=== PATIENT | male | born 1980 | race African-American/Black ===

== ENCOUNTER 2016-09-13 15:07 | Emergency (ER) | payer SELFPAY ==
[~2016-09-13] VITALS: Ht 175.3 cm; Wt 82.0 kg
[~2016-09-13 15:07] MED LIST: EPSOM SAL1 OR; EX-LAX OR; LIBRIUM25 MG OR; NO HOME MEDS
[2016-09-13 16:31] LABS: HEMATOCRIT 40.2 % (39.0-50.0); IMMATURE GRANULOCYTES 0.4 % (0.0-1.0); MEAN CELL VOLUME 103.3 fL CALC (80.0-100.0); MEAN CORPUSCULAR HGB 33.4 pG CALC (26.0-32.0); MEAN CORPUSCULAR HGB CONC 32.3 g/L CALC (32.0-36.0); NEUT# 4.5 thou/uL (1.82-7.42); RED BLOOD COUNT 3.89 mill/uL (4.70-6.10)
[2016-09-13 16:37] LABS: ALBUMIN 5.8 g/dL (3.2-5.0); ALKALINE PHOSPHATASE 77 u/l (38-126); ANION GAP 39 (6-22 (CALC)); BILIRUBIN, TOTAL 1.2 mg/dL (0.0-1.4); BUN 8 mg/dL (9-20); BUN/CREATININE RATIO 9 (12-20 (CALC)); CARBON DIOXIDE 11 mmol/l (22-30); CHLORIDE 98 mmol/l (95-108); GFR > 60 ML/MIN (>=60 (CALC)); GFR FOR AFR.AMER. > 60 ML/MIN (>=60 (CALC)); GLUCOSE 135 mg/dL (75-110); POTASSIUM 4.3 mmol/l (3.5-5.1); SGOT/AST 146 u/l (17-59); SGPT/ALT 72 u/l (21-72); SODIUM 143 mmol/l (137-146); TOTAL PROTEIN 10.1 g/dL (6.3-8.2)
[2016-09-13 19:57] LABS: ETHYL ALCOHOL 0 mg/dl (0-30)
[2016-09-13 22:50] LABS: URINE BLOOD DIPSTICK LARGE (NEGATIVE); URINE CLARITY CLEAR; URINE COLOR YELLOW; URINE GLUCOSE - DIPSTICK NEGATIVE (NEGATIVE); URINE KETONE 40 mg/dL (NEGATIVE); URINE LEUK ESTERASE NEGATIVE (NEGATIVE); URINE NITRITE - DIPSTICK NEGATIVE (Negative); URINE PROTEIN - DIPSTICK >=300 mg/dL (NEG-TRACE); URINE SPECIFIC GRAVITY >=1.030
[2016-09-13 22:55] LABS: BARBITURATES NEGATIVE (NEGATIVE); COCAINE NEGATIVE (NEGATIVE); METHADONE NEGATIVE (NEGATIVE); OXCYCODONE NEGATIVE (NEGATIVE); TETRAHYDROCANNABIONOL NEGATIVE (NEGATIVE); TRICYLIC ANTIDEPRESSANTS NEGATIVE (NEGATIVE)
[2016-09-13 22:57] LABS: URINE BILIRUBIN - DIPSTICK NEGATIVE (NEGATIVE)
[2016-09-13 23:05] LABS: URINE WBC 0-2 WBC/hpf (0-5); URINE YEAST FEW hpf
[2016-09-14 02:25] LABS: ALBUMIN 4.4 g/dL (3.2-5.0); ALKALINE PHOSPHATASE 63 u/l (38-126); ANION GAP 18 (6-22 (CALC)); BILIRUBIN, TOTAL 1.1 mg/dL (0.0-1.4); BUN 9 mg/dL (9-20); BUN/CREATININE RATIO 12 (12-20 (CALC)); CALCIUM 8.8 mg/dL (8.4-10.2); CARBON DIOXIDE 22 mmol/l (22-30); CHLORIDE 100 mmol/l (95-108); CREATININE 0.7 mg/dL (0.7-1.3); GFR > 60 ML/MIN (>=60 (CALC)); GFR FOR AFR.AMER. > 60 ML/MIN (>=60 (CALC)); GLUCOSE 71 mg/dL (75-110); POTASSIUM 4.3 mmol/l (3.5-5.1); SGOT/AST 98 u/l (17-59); SGPT/ALT 62 u/l (21-72); SODIUM 136 mmol/l (137-146); TOTAL PROTEIN 7.7 g/dL (6.3-8.2)
[2016-09-14 03:30] VITALS: BP 140/78
== END 2016-09-14 03:30 | disposition home or self-care (01) | DRG 101 ==
LOC: ED 15:07
PROVIDERS: Emergency Medicine
DX: G40.509 Epileptic seizures related to external causes, not intractable, without status epilepticus (principal); F17.200 Nicotine dependence, unspecified, uncomplicated
CPT/HCPCS: J2060

== ENCOUNTER 2017-06-15 13:31 | Emergency (ER) | payer SELFPAY ==
[~2017-06-15] VITALS: Ht 175.3 cm; Wt 60.0 kg
[2017-06-15] MEDS ORDERED: GENTAMICIN15 ML/BTL OD (15:34)
[2017-06-15 16:12] VITALS: BP 122/61
== END 2017-06-15 16:12 | disposition home or self-care (01) | DRG 115 ==
LOC: ED 13:31
PROC: 08C8XZZ Extirpation of Matter from Right Cornea, External Approach (ICD-10-PCS; principal; 2017-06-15)
DX: T15.01XA Foreign body in cornea, right eye, initial encounter (principal); X58.XXXA Exposure to other specified factors, initial encounter; Y93.89 Activity, other specified; Y92.414 Local residential or business street as the place of occurrence of the external cause

== ENCOUNTER 2018-02-07 20:53 | Emergency (ER) | payer SELFPAY ==
[~2018-02-07] VITALS: Ht 175.3 cm; Wt 70.9 kg
[~2018-02-07 20:53] MED LIST changes: +GENTAMICIN15 ML/BTL OD
[2018-02-07 21:30] VITALS: BP 137/90
[2018-02-07 21:33] LABS: HEMATOCRIT 38.2 % (39.0-50.0); HEMOGLOBIN 13.5 g/dl (14.0-18.0); IMMATURE GRANULOCYTES 0.2 % (0.0-5.0); MEAN CORPUSCULAR HGB 34.3 pG CALC (26.0-32.0); MEAN CORPUSCULAR HGB CONC 35.3 g/L CALC (32.0-36.0); NEUT# 2.28 thou/uL (1.82-7.42); RED BLOOD COUNT 3.94 mill/uL (4.70-6.10); RED CELL DISTRI WIDTH 13.5 % (11.5-15.5)
[2018-02-07 21:46] LABS: BILIRUBIN, TOTAL 0.4 mg/dL (0.0-1.4); BUN 5 mg/dL (9-20); BUN/CREATININE RATIO 8 (12-20 (CALC)); CHLORIDE 103 mmol/l (95-108); CREATININE 0.7 mg/dL (0.7-1.3); GFR > 60 ML/MIN (>=60 (CALC)); GFR FOR AFR.AMER. > 60 ML/MIN (>=60 (CALC)); POTASSIUM 4.1 mmol/l (3.5-5.1); SGOT/AST 116 u/l (17-59); SGPT/ALT 66 u/l (21-72); TOTAL PROTEIN 9.2 g/dL (6.3-8.2)
[2018-02-07 21:54] LABS: ALKALINE PHOSPHATASE 113 u/l (38-126); ANION GAP 18 (6-22 (CALC)); CARBON DIOXIDE 30 mmol/l (22-30); SODIUM 147 mmol/l (137-146)
[2018-02-07 21:55] LABS: ETHYL ALCOHOL 431 mg/dl (0-30)
[2018-02-07 21:57] LABS: MYOGLOBIN 26 ng/mL (0 - 121)
== END 2018-02-07 21:51 | disposition left against medical advice (07) | DRG 313 ==
LOC: ED 20:53
PROVIDERS: Emergency Medicine
DX: R07.89 Other chest pain (principal); F10.20 Alcohol dependence, uncomplicated; Y90.8 Blood alcohol level of 240 mg/100 ml or more; F17.210 Nicotine dependence, cigarettes, uncomplicated; Z91.19 Patient's noncompliance with other medical treatment and regimen

== ENCOUNTER 2021-10-27 15:29 | Inpatient (IN) | payer SELFPAY ==
[2021-10-27] VITALS (17 sets, daily range): BP systolic 117–169; BP diastolic 76–112
[~2021-10-27] VITALS: Ht 170.2 cm; Wt 56.6 kg
[2021-10-27 16:25] LABS: HEMATOCRIT 41.6 % (39.0-50.0); HEMOGLOBIN 14.5 g/dl (14.0-18.0); IMMATURE GRANULOCYTES 0.4 % (0.0-5.0); MEAN CELL VOLUME 95.6 fL CALC (80.0-100.0); MEAN CORPUSCULAR HGB 33.3 pG CALC (26.0-32.0); MEAN CORPUSCULAR HGB CONC 34.9 g/dL CAL (32.0-36.0); NEUT# 5.23 thou/uL (1.82-7.42); RED BLOOD COUNT 4.35 mill/uL (4.70-6.10); RED CELL DISTRI WIDTH 12.9 % (11.5-15.5)
[2021-10-27 16:43] LABS: ALBUMIN 5.4 g/dL (3.2-5.0); ALKALINE PHOSPHATASE 68 u/l (38-126); BUN 26 mg/dL (9-20); CHLORIDE 96 mmol/l (95-108); LIPASE 129 u/l (23-300); POTASSIUM 3.9 mmol/l (3.5-5.1); SGOT/AST 117 u/l (17-59); TOTAL PROTEIN 10.7 g/dL (6.3-8.2)
[2021-10-27 16:44] LABS: ANION GAP 29 (6-22 (CALC)); BILIRUBIN, TOTAL 1.6 mg/dL (0.0-1.4); BUN/CREATININE RATIO 8 (12-20 (CALC)); CARBON DIOXIDE 14 mmol/l (22-30); CREATININE 3.3 mg/dL (0.7-1.3); GFR 21 ML/MIN (>=60 (CALC)); GFR FOR AFR.AMER. 26 ML/MIN (>=60 (CALC)); SODIUM 135 mmol/l (137-146)
[2021-10-27 16:46] LABS: ACT PARTIAL THROMBO TIME 25.1 SECONDS (20.0-32.5)
[2021-10-27 16:50] LABS: URINE BLOOD DIPSTICK LARGE (NEGATIVE); URINE COLOR YELLOW; URINE GLUCOSE - DIPSTICK NEGATIVE (NEGATIVE); URINE KETONE TRACE mg/dL (NEGATIVE); URINE LEUK ESTERASE NEGATIVE (NEGATIVE); URINE PROTEIN - DIPSTICK >=300 mg/dL (NEG-TRACE); URINE SPECIFIC GRAVITY >=1.030; URINE UROBILINOGEN - DIPSTICK 0.2 E.U./dL (0.2)
[2021-10-27 16:54] LABS: URINE BILIRUBIN - DIPSTICK MODERATE (NEGATIVE)
[2021-10-27 16:55] LABS: URINE NITRITE - DIPSTICK NEGATIVE (Negative)
[2021-10-27 17:02] LABS: CPK 2659 u/l (52-200)
[2021-10-27 17:04] LABS: URINE CALCIUM OXALATE CRYSTALS FEW lpf; URINE WBC 0-2 WBC/hpf (0-5)
[2021-10-27 17:14] LABS: TSH, 3RD GENERATION 6.06 uIU/mL (0.47 - 4.68)
[2021-10-28] VITALS (12 sets, daily range): BP systolic 117–164; BP diastolic 74–95
[2021-10-28 05:09] LABS: MEAN CELL VOLUME 99.1 fL CALC (80.0-100.0); MEAN CORPUSCULAR HGB 33.6 pG CALC (26.0-32.0); MEAN CORPUSCULAR HGB CONC 33.9 g/dL CAL (32.0-36.0); RED BLOOD COUNT 3.3 mill/uL (4.70-6.10); RED CELL DISTRI WIDTH 13.3 % (11.5-15.5)
[2021-10-28 05:15] LABS: HEMATOCRIT 32.7 % (39.0-50.0); HEMOGLOBIN 11.1 g/dl (14.0-18.0)
[2021-10-28 05:31] LABS: ALKALINE PHOSPHATASE 45 u/l (38-126); BILIRUBIN, TOTAL 1.2 mg/dL (0.0-1.4); BUN 21 mg/dL (9-20); MAGNESIUM 1.8 mg/dL (1.6-2.3); POTASSIUM 3.4 mmol/l (3.5-5.1); SGOT/AST 143 u/l (17-59); SODIUM 137 mmol/l (137-146)
[2021-10-28 05:38] LABS: ALBUMIN 3.9 g/dL (3.2-5.0); ANION GAP 13 (6-22 (CALC)); BUN/CREATININE RATIO 18 (12-20 (CALC)); CARBON DIOXIDE 19 mmol/l (22-30); CHLORIDE 108 mmol/l (95-108); CREATININE 1.2 mg/dL (0.7-1.3); GFR > 60 ML/MIN (>=60 (CALC)); GFR FOR AFR.AMER. > 60 ML/MIN (>=60 (CALC))
[2021-10-28 05:56] LABS: CPK 5934 u/l (52-200)
[2021-10-29 00:08] VITALS: BP 145/99
[2021-10-29 04:08] VITALS: BP 150/87
[2021-10-29 05:42] LABS: HEMOGLOBIN 10.3 g/dl (14.0-18.0); MEAN CORPUSCULAR HGB 33.6 pG CALC (26.0-32.0); MEAN CORPUSCULAR HGB CONC 33.2 g/dL CAL (32.0-36.0); RED BLOOD COUNT 3.07 mill/uL (4.70-6.10); RED CELL DISTRI WIDTH 13.3 % (11.5-15.5)
[2021-10-29 06:04] LABS: BUN 11 mg/dL (9-20); BUN/CREATININE RATIO 17 (12-20 (CALC)); CHLORIDE 111 mmol/l (95-108); CREATININE 0.7 mg/dL (0.7-1.3); GFR > 60 ML/MIN (>=60 (CALC)); GFR FOR AFR.AMER. > 60 ML/MIN (>=60 (CALC)); MAGNESIUM 1.6 mg/dL (1.6-2.3); POTASSIUM 3.5 mmol/l (3.5-5.1); SODIUM 136 mmol/l (137-146)
[2021-10-29 06:12] LABS: ANION GAP 2 (6-22 (CALC)); CARBON DIOXIDE 27 mmol/l (22-30)
[2021-10-29 06:27] LABS: CPK 5213 u/l (52-200)
[2021-10-29 08:05] VITALS: BP 143/93
[2021-10-29 10:29] VITALS: BP 146/96
[2021-10-29 10:30] VITALS: BP 146/96
== END 2021-10-29 13:20 | disposition home or self-care (01) | DRG 897 ==
LOC: ED 15:29 → ICU 18:47 → MS2 10-28 15:11
PROVIDERS: Internal Medicine; ADMIT Hospitalist; ATTEND Hospitalist
DX: F10.231 Alcohol dependence with withdrawal delirium (principal); N17.9 Acute kidney failure, unspecified; M62.82 Rhabdomyolysis; K70.0 Alcoholic fatty liver; E86.0 Dehydration; I10 Essential (primary) hypertension; F17.210 Nicotine dependence, cigarettes, uncomplicated; Z20.822 Contact with and (suspected) exposure to COVID-19
CPT/HCPCS: J2060; S0166

== ENCOUNTER 2024-02-12 09:28 | Emergency (ER) | payer SELFPAY ==
[2024-02-12] VITALS (19 sets, daily range): BP systolic 94–156; BP diastolic 73–101
[~2024-02-12] VITALS: Ht 170.2 cm; Wt 68.9 kg
[2024-02-12] MEDS ORDERED: METOCLOPRAMIDE HCL 10 MG/2 ML SDV IV ONE (10:05)
[2024-02-12] MEDS ORDERED: FAMOTIDINE 10MG/ML 2ML SDV IV ONE (10:05)
[2024-02-12 10:21] LABS: BASO% 0.5 % (0-3); EOS% 2.2 % (0-8); IMMATURE GRANULOCYTES 0.1 % (0.0-5.0); LYMPH% 23.4 % (15-41); MEAN CELL VOLUME 100.3 fL CALC (80.0-100.0); MEAN CORPUSCULAR HGB 34.3 pG CALC (26.0-32.0); MEAN CORPUSCULAR HGB CONC 34.2 g/dL CAL (32.0-36.0); MONO% 14.8 % (2-13); NEUT# 4.57 thou/uL (1.82-7.42); RED BLOOD COUNT 3.91 mill/uL (4.70-6.10)
[2024-02-12 10:24] LABS: HEMATOCRIT 39.2 % (39.0-50.0); HEMOGLOBIN 13.4 g/dl (14.0-18.0)
[2024-02-12 10:27] LABS: LIPASE 91 u/l (23-300)
[2024-02-12 10:28] LABS: ALBUMIN 4.1 g/dL (3.2-5.0); BILIRUBIN, TOTAL 1.3 mg/dL (0.2-1.3); CREATININE 0.7 mg/dL (0.7-1.3); POTASSIUM 3.8 mmol/l (3.5-5.1); TOTAL PROTEIN 7.5 g/dL (6.3-8.2)
[2024-02-12 10:30] LABS: D-DIMER 1.4 mg/L (0.19-0.60)
[2024-02-12 10:32] LABS: PROTHROMBIN TIME 9.9 SECONDS (9.0-12.5)
== END 2024-02-12 15:21 | disposition home or self-care (01) | DRG 204 ==
LOC: ED 09:28
PROVIDERS: Emergency Medicine
DX: R91.8 Other nonspecific abnormal finding of lung field (principal); I10 Essential (primary) hypertension; F17.210 Nicotine dependence, cigarettes, uncomplicated
CPT/HCPCS: Q9967

== ENCOUNTER 2024-03-13 11:51 | Emergency (ER) | payer SELFPAY ==
[2024-03-13] VITALS (12 sets, daily range): BP systolic 111–129; BP diastolic 76–92
[~2024-03-13] VITALS: Ht 170.2 cm; Wt 52.3 kg
[2024-03-13 12:11] LABS: BASO% 0.5 % (0-3); EOS% 1.5 % (0-8); HEMATOCRIT 37.8 % (39.0-50.0); HEMOGLOBIN 12.5 g/dl (14.0-18.0); IMMATURE GRANULOCYTES 0.2 % (0.0-5.0); LYMPH% 22.9 % (15-41); MEAN CELL VOLUME 95.5 fL CALC (80.0-100.0); MEAN CORPUSCULAR HGB 31.6 pG CALC (26.0-32.0); MEAN CORPUSCULAR HGB CONC 33.1 g/dL CAL (32.0-36.0); MONO% 11.5 % (2-13); NEUT# 5.87 thou/uL (1.82-7.42); NEUT% 63.4 % (42-76); RED BLOOD COUNT 3.96 mill/uL (4.70-6.10); RED CELL DISTRI WIDTH 11.5 % (11.5-15.5)
[2024-03-13] MEDS ORDERED: KETOROLAC TROMETHAMINE 30 MG/ML SDV IV ONE (12:15)
[2024-03-13 12:32] LABS: ALBUMIN 4.1 g/dL (3.2-5.0); ALKALINE PHOSPHATASE 74 u/l (38-126); ANION GAP 10 (6-22 (CALC)); BILIRUBIN, TOTAL 0.8 mg/dL (0.2-1.3); BUN 7 mg/dL (9-20); BUN/CREATININE RATIO 10 (12-20 (CALC)); CARBON DIOXIDE 26 mmol/l (22-30); CHLORIDE 102 mmol/l (95-108); CREATININE 0.7 mg/dL (0.7-1.3); ESTIMATED GFR 119 ML/MIN (>=90 (CALC)); POTASSIUM 3.8 mmol/l (3.5-5.1); SGOT/AST 26 u/l (17-59); SODIUM 134 mmol/l (137-146); TOTAL PROTEIN 8.1 g/dL (6.3-8.2)
== END 2024-03-13 16:10 | disposition home or self-care (01) | DRG 206 ==
LOC: ED 11:51
PROVIDERS: Family Medicine
DX: R91.1 Solitary pulmonary nodule (principal); K22.89 Other specified disease of esophagus; I10 Essential (primary) hypertension; F17.200 Nicotine dependence, unspecified, uncomplicated
CPT/HCPCS: Q9967